=== PATIENT | male | born 1935 | race Caucasian/White ===

== ENCOUNTER 2017-05-09 18:41 | Inpatient (IN) | payer MEDICARE, OTHER ==
[~2017-05-09] VITALS: Ht 182.9 cm; Wt 98.3 kg
[2017-05-09 20:00] VITALS: BP 112/68
[2017-05-09] MEDS ORDERED: PLEASE ENTER HEIGHT AND WEIGHT MC SCH (20:00)
[2017-05-09] MEDS: SODIUM CHLORIDE 0.9% 1,000 ML IV SCH ×2 (20:00→22:45)
[2017-05-09] MEDS ORDERED: PLEASE ENTER ALLERGIES MC SCH ×2 (20:00)
[2017-05-09] MEDS ORDERED: POLYETHYLENE GLYCOL 17 GM PACKET PO PRN (21:30)
[2017-05-09] MEDS ORDERED: ACETAMINOPHEN 325 MG TABLET PO PRN (21:30)
[2017-05-09] MEDS ORDERED: LABETALOL 5MG/ML, 20ML IVPush PRN (21:30)
[2017-05-09] MEDS ORDERED: TEMAZEPAM 15 MG CAPSULE PO PRN (21:30)
[2017-05-09] MEDS ORDERED: VANCOMYCIN PER PHARMACY MC PRN (22:00)
[2017-05-09] MEDS ORDERED: PHARMACOKINETIC MONITORING MC PRN (22:30)
[2017-05-09] MEDS: CEFEPIME 2 GM in DEXTROSE 5% 100 ML IV SCH (22:59)
[2017-05-09 23:30] VITALS: BP 112/68
[2017-05-10] MEDS: VANCOMYCIN 1,800 MG in SODIUM CHLORIDE 0.9% 250 ML IV SCH (00:26)
[2017-05-10 01:33] VITALS: BP 133/81
[2017-05-10] MEDS ORDERED: HEPARIN 5,000 UNITS/ML, 1ML IV ONE (05:00)
[2017-05-10] MEDS ORDERED: HEPARIN 25,000 UNITS/500ML PMX 500 ML IV PRN (05:00)
[2017-05-10] MEDS ORDERED: HEPARIN 5,000 UNITS/ML, 1ML IV PRN (05:00)
[2017-05-10] MEDS: CEFEPIME 2 GM in DEXTROSE 5% 100 ML IV SCH ×3 (05:58→22:55)
[2017-05-10 06:09] LABS: HEMATOCRIT 31.6 % (39.2-51.8); HEMOGLOBIN 10.5 g/dL (13.7-18.0); WHITE BLOOD COUNT 6.1 x10^3/uL (3.4-10)
[2017-05-10 06:28] LABS: BLOOD UREA NITROGEN 27 mg/dL (7-18)
[2017-05-10] MEDS: INSULIN ASPART 100 UNITS/ML, PEN SQ-INSULIN SCH ×4 (07:00→21:00)
[2017-05-10 08:32] VITALS: BP 136/82
[2017-05-10] MEDS: SODIUM CHLORIDE 0.9% 1,000 ML IV SCH ×4 (08:53→21:29)
[2017-05-10] MEDS ORDERED: PROPOFOL 10 MG/ML, 20ML ONE (11:51)
[2017-05-10 13:07] VITALS: BP 146/70
[2017-05-10 19:33] VITALS: BP 146/75
[2017-05-10] MEDS ORDERED: WARFARIN 7.5 MG TABLET PO-COUM ONE (22:00)
[2017-05-10] MEDS: HEPARIN 5,000 UNITS/ML, 1ML SQ SCH (22:56)
[2017-05-11] MEDS: VANCOMYCIN 1,800 MG in SODIUM CHLORIDE 0.9% 250 ML IV SCH
[2017-05-11 00:39] VITALS: BP 147/76
[2017-05-11] MEDS: SODIUM CHLORIDE 0.9% 1,000 ML IV SCH ×3 (05:12→21:00)
[2017-05-11 06:29] LABS: HEMATOCRIT 32.1 % (39.2-51.8); HEMOGLOBIN 10.4 g/dL (13.7-18.0); WHITE BLOOD COUNT 6.7 x10^3/uL (3.4-10)
[2017-05-11 06:53] VITALS: BP 129/74
[2017-05-11] MEDS: INSULIN ASPART 100 UNITS/ML, PEN SQ-INSULIN SCH ×4 (07:00→20:15)
[2017-05-11 07:01] LABS: BLOOD UREA NITROGEN 23 mg/dL (7-18)
[2017-05-11] MEDS: HEPARIN 5,000 UNITS/ML, 1ML SQ SCH ×2 (08:19→18:36)
[2017-05-11] MEDS: CEFEPIME 2 GM in DEXTROSE 5% 100 ML IV SCH (08:19)
[2017-05-11 12:40] VITALS: BP 150/78
[2017-05-11] MEDS ORDERED: CEFD300C37 PO (16:38)
[2017-05-11] MEDS ORDERED: DOXY100T PO (16:38)
[2017-05-11] MEDS ORDERED: ACET325T14 PO (16:38)
[2017-05-11] MEDS ORDERED: OXYB5TAB7 PO (16:42)
[2017-05-11] MEDS ORDERED: ASPI-621 PO (16:42)
[2017-05-11] MEDS ORDERED: TAMS-11 PO (16:42)
[2017-05-11] MEDS ORDERED: METF500T4 PO (16:42)
[2017-05-11] MEDS ORDERED: WARF7.5T PO (16:44)
[2017-05-11] MEDS ORDERED: WARF5TAB PO (16:44)
[2017-05-11] MEDS ORDERED: WARFARIN 7.5 MG TABLET PO-COUM ONE (18:00)
[2017-05-11 19:16] VITALS: BP 132/70
[2017-05-11] MEDS ORDERED: OMNIPAQUE 350 MG/ML, 100ML BOTTLE ONE (20:38)
[2017-05-11] MEDS: DOXYCYCLINE 100MG TABLET PO SCH (21:25)
[2017-05-11] MEDS: CEFDINIR 300 MG CAPSULE PO SCH (21:25)
[2017-05-12 00:46] VITALS: BP 132/79
[2017-05-12] MEDS: HEPARIN 5,000 UNITS/ML, 1ML SQ SCH ×2 (00:49→11:37)
[2017-05-12] MEDS: SODIUM CHLORIDE 0.9% 1,000 ML IV SCH (04:54)
[2017-05-12] MEDS: CEFDINIR 300 MG CAPSULE PO SCH (07:32)
[2017-05-12] MEDS: INSULIN ASPART 100 UNITS/ML, PEN SQ-INSULIN SCH (07:32)
[2017-05-12] MEDS: DOXYCYCLINE 100MG TABLET PO SCH (07:32)
[2017-05-12 08:00] VITALS: BP 128/75
[2017-05-12] MEDS ORDERED: WARF7.5T6 PO (11:46)
[2017-05-12] MEDS ORDERED: WARFARIN 5 MG TABLET PO-COUM ONE (18:00)
== END 2017-05-12 12:10 | disposition home or self-care (01) | DRG 871 ==
LOC: 4WST 18:41
PROVIDERS: ADMIT Internal Medicine; ATTEND Internal Medicine
PROC: B24BZZ4 Ultrasonography of Heart with Aorta, Transesophageal (ICD-10-PCS; principal; 2017-05-10 11:50)
DX: A41.9 Sepsis, unspecified organism (principal); J18.1 Lobar pneumonia, unspecified organism; N17.0 Acute kidney failure with tubular necrosis; I44.2 Atrioventricular block, complete; D68.69 Other thrombophilia; I38 Endocarditis, valve unspecified; I11.9 Hypertensive heart disease without heart failure; I48.0 Paroxysmal atrial fibrillation; E11.9 Type 2 diabetes mellitus without complications; D64.9 Anemia, unspecified; E78.5 Hyperlipidemia, unspecified; I34.0 Nonrheumatic mitral (valve) insufficiency; R49.0 Dysphonia; I37.1 Nonrheumatic pulmonary valve insufficiency; N40.0 Benign prostatic hyperplasia without lower urinary tract symptoms; Z79.01 Long term (current) use of anticoagulants; Z95.0 Presence of cardiac pacemaker; Z82.3 Family history of stroke; Z85.820 Personal history of malignant melanoma of skin; Z87.891 Personal history of nicotine dependence; K57.90 Diverticulosis of intestine, part unspecified, without perforation or abscess without bleeding
CPT/HCPCS: 36415; 71250; 74177; 80048; 82962; 84443; 85025; 85520; 85610; 87040; 93312; 93325; J1644; J2704; J3370; Q9967; J7030; J7050

== ENCOUNTER → 2017-08-14 | Outpatient (CLI) | payer MEDICARE, OTHER ==
[~2017-08-14] MED LIST: ACET325T14 PO; ASPI-621 PO; CEFD300C37 PO; DOXY100T PO; METF500T4 PO; OXYB5TAB7 PO; TAMS-11 PO; WARF5TAB PO; WARF7.5T PO; WARF7.5T6 PO
== END | disposition home or self-care (01) ==
LOC: EDSTATUS 14:30 → CFH 14:36
PROVIDERS: ATTEND Internal Medicine
DX: R91.8 Other nonspecific abnormal finding of lung field (principal); J84.10 Pulmonary fibrosis, unspecified
CPT/HCPCS: 71250

== ENCOUNTER 2019-11-13 10:17 | Day surgery (SDC) | payer MEDICARE, OTHER ==
[~2019-11-13] VITALS: Ht 185.4 cm; Wt 97.7 kg
[~2019-11-13 10:17] MED LIST changes: -ASPI-621 PO; +ASPI81TA45 PO; +METF500T17 PO; -METF500T4 PO; +OXYB5TAB10 PO; -OXYB5TAB7 PO; -WARF5TAB PO; +WARF5TAB2 PO; +WARF7.5T46 PO; -WARF7.5T6 PO
[2019-11-13] MEDS ORDERED: SODIUM CHLORIDE 0.9% 1,000 ML IV SCH (10:53)
[2019-11-13 10:55] VITALS: BP 136/81
[2019-11-13] MEDS ORDERED: RIVA10TA2 PO (11:06)
[2019-11-13] MEDS ORDERED: RAMI10CA59 PO (11:06)
[2019-11-13] MEDS ORDERED: MIRA25TA PO (11:07)
[2019-11-13] MEDS ORDERED: ESOM40CA PO (11:07)
[2019-11-13] MEDS ORDERED: CEFAZOLIN 1,000 MG ONE (11:17)
[2019-11-13] MEDS ORDERED: CEFAZOLIN PMX 1GM/50ML 50 ML ONE (11:17)
[2019-11-13] MEDS ORDERED: LIDOCAINE 1%, 20ML ONE (11:17)
[2019-11-13] MEDS ORDERED: HOLD MEDICATION MC PRN (13:00)
[2019-11-13] MEDS ORDERED: SODIUM CHLORIDE FLUSH 10ML SYR IVF SCH (21:00)
== END 2019-11-13 13:15 | disposition home or self-care (01) ==
LOC: CACL 10:17
PROVIDERS: ATTEND Internal Medicine Cardiovascular Disease
DX: Z45.010 Encounter for checking and testing of cardiac pacemaker pulse generator [battery] (principal); I48.20 Chronic atrial fibrillation, unspecified; I10 Essential (primary) hypertension; E11.9 Type 2 diabetes mellitus without complications; E83.110 Hereditary hemochromatosis; Z79.01 Long term (current) use of anticoagulants; Z79.84 Long term (current) use of oral hypoglycemic drugs; Z79.899 Other long term (current) drug therapy; Z82.49 Family history of ischemic heart disease and other diseases of the circulatory system
CPT/HCPCS: 33228; C1785; J0690; 99156